=== PATIENT | female | born 1995 | race Caucasian/White ===

== ENCOUNTER 2024-11-27 07:20 | Inpatient (IN) | payer MEDICAID ==
[~2024-11-27] VITALS: Ht 160 cm; Wt 63.5 kg
[2024-11-27] VITALS (23 sets, daily range): BP systolic 110–132; BP diastolic 70–88; PULSE 68–85; RESP 16–18; TEMP 97.7–98.2; O2SAT 97–100
[2024-11-27] MEDS ORDERED: BUTORPHANOL TARTRATE 2 MG/1 ML VIAL IV PRN ×2 (08:00)
[2024-11-27 08:48] LABS: Hematocrit 39.5 % (36.0-46.0); Hemoglobin 12.7 g/dL (12.2-16.2); Mean Corpuscular Hemoglobin 27.6 pg (28.0-32.0); Mean Corpuscular Volume 85.9 fL (80.0-100.0); Nucleated Red Blood Cells % 0.1 %
--- NOTE | 2024-11-27 08:48 | DVHHP2 ---
OB CC & HPI Date Date of Admission: Nov 27, 2024 Patient Identification: : 1 Para: 0 EDC: Dec 15, 2024 EGA: 35 Chief Complaints: Reason for admission: active labor Admission Nurse Assessment Rev: No History of Present Complaints pt is admitted for active labor,she has no care and has used drugs. pt presented fully dilated .she also has high bp and 3 + edema in lower ext Past Medical History Cardiac: No pertinent Hx Pulmonary: No pertinent Hx Central Nervous System: No pertinent Hx GI: No pertinent Hx Hemotology/Oncology: No pertinent Hx Hepatobiliary: No pertinent Hx Psychiatric: No pertinent Hx Musculoskeletal: No pertinent Hx Rheumotologic: No pertinent Hx Infectious Disease: No peritnent Hx ENT: No pertinent Hx Renal/: No pertinent Hx Endocrine: No pertinent Hx Dermatology: No pertinent Hx Past Surgical History: No pertinent Hx OB History OB History Care: None Ultrasounds: No ultrasounds Obstetrical Complications: None Medical Complications: None Allergies: Coded Allergies: NO KNOWN ALLERGIES (Unverified , 11/27/24) Current Medications Current Medications Medications (Trade) Dose Ordered Sig/Adriane Route PRN Reason Start Time Stop Time Status Last Admin Lactated Ringer's 1,000 ml @ 125 mls/hr Q8H IV 11/27/24 08:00 UNV Witch Cookie (Tucks) 1 pad PRN PRN TOP PERINEAL AREA DISCOMFORT 11/27/24 08:00 UNV Sodium Lauryl Sulfate (Phisoderm) 240 ml PRN PRN TOP PERINEAL AREA DISCOMFORT 11/27/24 08:00 UNV Benzocaine (Dermoplast) 1 applic PRN PRN TOP PERINEAL AREA DISCOMFORT 11/27/24 08:00 UNV Butorphanol Tartrate (Stadol Injection) 1 mg Q4HPRN PRN IV MODERATE PAIN (4-6 PAIN SCALE) 11/27/24 08:00 UNV Butorphanol Tartrate (Stadol Injection) 2 mg Q4HPRN PRN IV SEVERE PAIN (7-10 PAIN SCALE) 11/27/24 08:00 UNV Lidocaine HCl (Xylocaine) 20 ml ONCE PRN IJ PERINEAL AREA DISCOMFORT 11/27/24 08:00 UNV Family & Social History Family/Social History Blood Type: Unknown Rubella: unknown RPR/VDRL: Unknown GBS Status: Unknown HBsAG: Unknown Review of Systems Constitutional: No symptom reported Ears, Nose, & Throat: No symptom reported Eyes: No symptom reported Pulmonary/Respiratory: No symptom reported Cardiovascular: No symptom reported Gastrointestinal: No symptom reported Genitourinary: No symptom reported Musculoskeletal: No symptom reported Skin: No symptom reported Psychiatric: No symptom reported Endocrine: No symptom reported Hemotologic/Lymphatic: No symptom reported OB Admission Exam Physical Exam HEENT: TMs Normal, Fontanelles Normal, Nasal Mucosa Normal, Eyes non-injected, Oropharynx Normal, PERRLA, Moist Membranes, EOMI Heart: Rhythm Normal Lungs: Clear Abdomen: Non tender Extremities: Normal Reflexes: Normal Cervical Dilatation: 10cm Effacement: 100% Station: +3 Membranes: Ruptured Amniotic Fluid: Clear Heart Rate: 130's Accelerations: Accelerations Present Decelerations: No Decelerations Short Term Variability: Present Masonry Inspector Variability: Average (6-25) Contractions on Admission: < 5 Minutes Apart Intensity: Moderate OB Plan Plan Admitting Diagnosis: iup at 37 wks with PRECIPITOUS LABO pih,drug use in preg ,no care Plan: Expectant Management Other Plan: informed consent obtanied Visit Coding OBGYN Date of Service: Nov 27, 2024 Billing Provider: JUAN C TRACY DO ELECTRICAL INSTALLATION INSPECTOR Common Visit Codes: [id number] OBS CARE (HIGH) ELECTRICAL INSTALLATION INSPECTOR Procedure Codes: 14096-LDW DELIVERY ONLY JUAN C TRACY DO Nov 27, 2024 08:47
--- NOTE | 2024-11-27 08:50 | LDN2 ---
Labor and Delivery Note Date 11/27/24 Age 29 1 Para 1 EDC 9-17 EGA 37wks Diagnosis active labor,pih,no care,drug use in preg,percipitous del Vaginal Delivery: VTX Vacuum Assisted: No Placenta: Spontaneous Sex: Female Apgars 7-7-8 Nuchal Cord Transected: No Amniotic Fluid: Clear Anesthesia xylocaine Episiotomy: Yes Extension: Yes (midline epis with 2nd dge perineal lac) Repaired with 2-0 chromic EBL 300ml Labs Laboratory Tests 11/27/24 08:11: Complications none Conditions stable Comments/Significant Med Sravanthi spec exam no cxal lac Visit Coding OBGYN Date of Service: Nov 27, 2024 Billing Provider: JUAN C TRACY DO PROP SAWYER Common Visit Codes: [id number] OBS CARE (HIGH) PROP SAWYER Procedure Codes: 36790-ZVO DELIVERY ONLY JUAN C TRACY DO Nov 27, 2024 08:50
[2024-11-27 08:59] LABS: Alanine Aminotransferase 32 U/L (7-40); Albumin 3.4 g/dL (3.2-4.8); Anion Gap 10 (5-15); BUN/Creatinine Ratio 19.0 (10.0-20.0); Blood Urea Nitrogen 11 mg/dL (9-23); Calcium 8.8 mg/dL (8.7-10.4); Potassium 4.3 mmol/L (3.5-5.1); Sodium 137 mmol/L (136-145); Total Protein 6.7 g/dL (5.7-8.2)
[2024-11-27 09:01] LABS: Carbon Dioxide 18 mmol/L (20-31); Chloride 109 mmol/L (98-107)
[2024-11-27 09:02] LABS: Alkaline Phosphatase 334 U/L (46-116); Bilirubin, Total 0.2 mg/dL (0.2-1.0); Glucose 147 mg/dL (74-106)
[2024-11-27 09:08] LABS: Uric Acid 3.3 mg/dL (3.1-7.8)
[2024-11-27 09:11] LABS: INR 0.86 (0.9-1.15); Partial Thromboplastin Time 21.9 SEC (24.5-34.5); Prothrombin Time 9.3 sec (9.3-11.8)
[2024-11-27 09:27] LABS: Urine Protein, UAD 1+ (Negative); Urine WBC Clumps PRESENT /hpf (None Seen)
[2024-11-27 09:34] LABS: Protein, Urine 84.6 mg/dL (1-14)
[2024-11-27 09:46] LABS: Amphetamine Screen, Urine Pos (NEGATIVE); Barbiturate Scree,Urine Neg (NEGATIVE); Benzodiazephine Screen, Urine Neg (NEGATIVE); Cannabinoid Screen, Urine Neg (NEGATIVE); Cocaine Screen, Urine Neg (NEGATIVE); Opiate Scree,Urine Pos (NEGATIVE); Phencyclidine Screen, Urine Neg (NEGATIVE)
[2024-11-27] MEDS ORDERED: LORazepam 2MG/ML-1ML VIAL IV ONE (10:30)
[2024-11-27] MEDS: WITCH HAZEL-GLYCERIN PAD TOP PRN (10:49)
[2024-11-27] MEDS: PHISODERM TOP SOLN 240ML BTL TOP PRN (10:49)
[2024-11-27] MEDS: DERMOPLAST 60ML BOTTLE TOP PRN (10:49)
[2024-11-27] MEDS: LACT. RINGERS/OXYTOCIN 20UNITS 500 ML IV ONE ×2 (10:51→10:52)
[2024-11-27] MEDS: MAGNESIUM SULFATE 100 ML IV ONE (11:08)
[2024-11-27] MEDS ORDERED: ACETAMINOPHEN 325 MG TAB PO PRN (11:45)
[2024-11-27] MEDS ORDERED: ONDANSETRON ODT 4 MG TAB PO PRN (11:45)
[2024-11-27] MEDS: LACTATED RINGER'S 1,000 ML IV SCH (11:49)
[2024-11-27] MEDS: MAGNESIUM SULFATE 40MG/ML 1,000 ML IV SCH (11:59)
[2024-11-27] MEDS: LIDOCAINE 2%HCL (LOCAL ANESTH.) INJ 20ML MDV IJ PRN (13:03)
[2024-11-27] MEDS: DOCUSATE SOD 100 MG CAP PO SCH (22:00)
[2024-11-28] VITALS (8 sets, daily range): BP systolic 101–136; BP diastolic 56–83; PULSE 73–94; RESP 16–18; TEMP 98.2–98.4; O2SAT 97–99
--- NOTE | 2024-11-28 04:25 | DVHPN2 ---
Chief Complaints Patient reports: No new complaints (Denies any sx. No h/a, epigastric pain or visual change. Coping well. Denies blues) Nursing reports: No new complaints Objective Vitals Vital Signs Date Time Temp Pulse Resp B/P (MAP) Pulse Ox O2 Delivery O2 Flow Rate FiO2 11/28/24 03:01 98.4 94 18 132/79 (96) 98 98.4 11/28/24 01:00 Room Air Medications Current Medications Medications (Trade) Dose Ordered Sig/Adriane Route PRN Reason Start Time Stop Time Status Last Admin Acetaminophen (Tylenol Tablet) 650 mg Q4HP PRN PO MILD PAIN (1-3 PAIN SCALE) 11/27/24 11:45 Benzocaine (Dermoplast) 1 applic PRN PRN TOP PERINEAL AREA DISCOMFORT 11/27/24 08:00 11/27/24 10:49 Docusate Sodium (Colace Capsule) 200 mg HS PO 11/27/24 22:00 Ibuprofen (Motrin Tablet) 600 mg Q6HP PRN PO MODERATE PAIN (4-6 PAIN SCALE) 11/27/24 11:45 Lactated Ringer's 1,000 ml @ 125 mls/hr Q8H IV 11/27/24 08:00 11/27/24 11:49 Lidocaine HCl (Xylocaine) 20 ml ONCE PRN IJ PERINEAL AREA DISCOMFORT 11/27/24 08:00 11/27/24 13:03 Magnesium Sulfate 1,000 ml @ 50 mls/hr Q20H IV 11/27/24 10:30 11/27/24 11:59 Ondansetron HCl (Zofran Po) 4 mg Q4HPRN PRN PO NAUSEA / VOMITING 11/27/24 11:45 Sodium Lauryl Sulfate (Phisoderm) 240 ml PRN PRN TOP PERINEAL AREA DISCOMFORT 11/27/24 08:00 11/27/24 10:49 Witch Cookie (Tucks) 1 pad PRN PRN TOP PERINEAL AREA DISCOMFORT 11/27/24 08:00 11/27/24 10:49 General: Normal Lungs: Normal, Normal breath sounds, Lungs clear Cardiovascular: Normal, Regular rate and rhythm Heart Murmur: no murmur Abdominal: Normal (Fundus firm, 2fb below umbilicus, non tender) Musculoskeletal: Normal Extremities: Normal (Elizabeth's neg), No edema Skin: Normal Others Breasts soft, nipples intact Perineum without edema, lochia minimal, no odor Studies Laboratory Tests 11/27/24 08:11 Test 11/27/24 08:11 Range/Units Serum Glucose 147 H 74-106 mg/dL Ass/Plan Assessment 1st PP day H/o hypertension - currently mild range BPs Plan D/c magnesium sulfate as ordered Continue close BP monitoring Continue PP management Evaluate for d/c tomorrow Visit Coding OBGYN Date of Service: Nov 28, 2024 Billing Provider: IONA GUZMAN CNM HEDIS ANALYST Common Visit Codes: [id number] INP/OBS CARE(MOD) HEDIS ANALYST Procedure Codes: 73296-DJA DEL INCLUDING IONA GUZMAN CNM Nov 28, 2024 04:25
[2024-11-28] MEDS: IBUPROFEN 600 MG TAB PO PRN (09:45)
[2024-11-28] MEDS ORDERED: LABETALOL HCL 200 MG TAB PO SCH (10:00)
[2024-11-28] MEDS: LABETALOL HCL 200 MG TAB PO SCH (22:00)
[2024-11-29 03:20] VITALS: BP 122/67; PULSE 96; RESP 16; TEMP 98.1; O2SAT 99
--- NOTE | 2024-11-29 04:37 | DVHPN2 ---
Progress Note Date Seen: Nov 29, 2024 Subjective - Subjective bleeding is scant, ambulating to the bathroom, regular diet denies lightheaded/dizziness, pain well controlled with oral medications, no concerns with urinating, passing flatus, no BM yet, well. Reports of perineal pain at the episiotomy site. Objective Vital Signs Date Time Temp Pulse Resp B/P (MAP) Pulse Ox O2 Delivery O2 Flow Rate FiO2 11/29/24 03:20 98.1 96 16 122/67 (85) 99 98.1 11/28/24 18:30 Room Air Chest: heart sounds normal and lung sounds clear bilaterally Abd: soft, non-tender, fundus at -2 below umbilicus/firm/midline, active bowel sounds, no rebound or guarding Perineum: sutures intact, edges well approximated, no erythema/edema noted Ext: Non-tender, +1 pitting edema lower extremities Lochia: minimal See lab results Assessment 29yo now PPD#2 s/p with episiotomy PPD #2 + UDS Methamphetamines / Opiates + Hep C Social Consult done Elevated Blood pressures during labor / Magnesium therapy during labor for neuro protection. Taking labetalol 100 mg BID for elevated blood pressure Plan D/C home today will be continued observation as ordered by the job training supervisor Rx sent to pharmacy precautions and preeclampsia warning signs reviewed F/U with [facility] OB office in 1 weeks Activity: as tolerated, no heavy lifting and nothing in the vagina for 6 weeks will continued admission for observation vital signs Vital Sign Date Time Temp Pulse Resp B/P (MAP) Pulse Ox O2 Delivery O2 Flow Rate FiO2 11/29/24 03:20 98.1 96 16 122/67 (85) 99 98.1 11/28/24 18:30 Room Air Total Intake and Output 11/28/24 11/28/24 11/29/24 15:00 23:00 07:00 Output Total 500 ml 400 ml Balance -500 ml -400 ml medications Current Medications Medications Dose Ordered Sig/Adriane Route Start Time Stop Time Status Last Admin Dose Admin Lactated Ringer's 1,000 ml @ 125 mls/hr Q8H IV 11/27/24 08:00 11/27/24 11:49 125 MLS/HR Vicky Gary 1 pad PRN PRN TOP 11/27/24 08:00 11/27/24 10:49 1 PAD Sodium Lauryl Sulfate 240 ml PRN PRN TOP 11/27/24 08:00 11/27/24 10:49 240 ML Benzocaine 1 applic PRN PRN TOP 11/27/24 08:00 11/27/24 10:49 1 APPLIC Lidocaine HCl 20 ml ONCE PRN IJ 11/27/24 08:00 11/27/24 13:03 20 ML Magnesium Sulfate 1,000 ml @ 50 mls/hr Q20H IV 11/27/24 10:30 11/27/24 11:59 50 MLS/HR Ibuprofen 600 mg Q6HP PRN PO 11/27/24 11:45 11/28/24 09:45 600 MG Acetaminophen 650 mg Q4HP PRN PO 11/27/24 11:45 Ondansetron HCl 4 mg Q4HPRN PRN PO 11/27/24 11:45 Docusate Sodium 200 mg HS PO 11/27/24 22:00 11/28/24 21:55 200 MG Labetalol HCl 100 mg Q12HR PO 11/28/24 10:00 11/28/24 22:07 100 MG Labetalol HCl 100 mg Q12HR PO 11/28/24 10:00 Cancel laboratory and microbiology Laboratory Tests 11/27/24 08:11 Test 11/27/24 08:11 Range/Units Serum Glucose 147 H 74-106 mg/dL Problems(with codes): (1) Vaginal delivery (2) Episiotomy pain (3) Positive urine drug screen (4) Elevated blood pressure affecting in third trimester, antepartum (5) Limited care (6) Substance abuse complicating in third trimester, antepartum (7) Hepatitis C Assessment/Plan _ Plan discussed with: Patient Visit Coding OBGYN Date of Service: Nov 29, 2024 Billing Provider: NATHANIEL LIN CNM HAND CLERICAL VERIFIER Common Visit Codes: [id number] OBS CARE (MOD) [facility] [place] [facility]
[2024-11-29 07:30] VITALS: BP 119/84; PULSE 91; RESP 18; TEMP 98.2; O2SAT 98
--- NOTE | 2024-11-29 08:29 | DVHPN2 ---
Chief Complaints Patient reports: No new complaints (Denies any sx. No h/a, epigastric pain or visual change. Coping well. Denies blues) Nursing reports: No new complaints Objective Vitals Vital Signs Date Time Temp Pulse Resp B/P (MAP) Pulse Ox O2 Delivery O2 Flow Rate FiO2 11/29/24 07:30 98.2 91 18 119/84 (96) 98 98.2 11/28/24 18:30 Room Air Medications Current Medications Medications (Trade) Dose Ordered Sig/Adriane Route PRN Reason Start Time Stop Time Status Last Admin Labetalol HCl (Normodyne Tablet) 100 mg Q12HR PO 11/28/24 10:00 11/28/24 22:00 Labetalol HCl (Normodyne Tablet) 100 mg Q12HR PO 11/28/24 10:00 Cancel General: Normal Lungs: Normal, Normal breath sounds, Lungs clear Cardiovascular: Normal, Regular rate and rhythm Heart Murmur: no murmur Abdominal: Normal (Fundus firm, 2fb below umbilicus, non tender), Soft Musculoskeletal: Normal Extremities: Normal (Elizabeth's neg), No edema Skin: Normal Studies Laboratory Tests 11/27/24 08:11 Test 11/27/24 08:11 Range/Units Serum Glucose 147 H 74-106 mg/dL Ass/Plan Assessment S/P Plan DC HOME FU IN 1 WK Visit Coding OBGYN Date of Service: Nov 29, 2024 Billing Provider: JUAN C TRACY DO GROUP FITNESS MANAGER Common Visit Codes: 75052-SNODYTT OBS CARE (HIGH), 50815-[id number] INP/OBS CARE(HIGH), 37451-ABU/OBS DISCH DAY >30MIN GROUP FITNESS MANAGER Procedure Codes: 35001-LZV DELIVERY ONLY JUAN C TRACY DO Nov 29, 2024 08:29
[2024-11-29] MEDS ORDERED: LABE100T7 PO (08:34)
--- NOTE | 2024-11-29 08:34 | DVHDS2 ---
Obstetrics Discharge Summary Obstetrics Discharge Summary Date of Admission: Nov 27, 2024 Date of Discharge: Nov 29, 2024 Reason For Admission: Onset of Labor Procedures: NST Intrapartum Procedures: Spontaneous vaginal deliv, Episiotomy Procedures: None, Transfusion Operative Complicat: Laceration (PERINEAL LAC MIDLINE 2ND DEG) Discharge Diagnosis: Delivery (DRUG USE IN PREG,PERCIPITOUS PREG,PIH,NO CARE) Discharge Information: Activity (Other), Diet (Routine), Medications (Name:), Instructions (Routine), Discharge to (Home), Discarge date (11-29) Visit Coding OBGYN Date of Service: Nov 29, 2024 Billing Provider: JUAN C TRACY DO HEARING STENOGRAPHER Common Visit Codes: [id number] INP/OBS CARE(HIGH), 78230-MXC/OBS DISCH DAY >30MIN HEARING STENOGRAPHER Procedure Codes: 60754-IKT DELIVERY ONLY JUAN C TRACY DO Nov 29, 2024 08:34
[2024-11-29] MEDS ORDERED: hydrALAZINE HCL 20 MG/ML VL IV ONE (09:29)
[2024-11-29 09:30] VITALS: TEMP 98.6
[2024-11-30 12:07] LABS: Chlamydia Trachomatis, NAA Negative (Negative); Neisseria gonorrhoeae, NAA Negative (Negative)
== END 2024-11-29 09:30 | disposition home or self-care (01) | DRG 560 ==
LOC: OBSVTOIN 07:20 → LDRP 07:20
PROVIDERS: ADMIT Obstetrics & Gynecology; ATTEND Obstetrics & Gynecology
PROC: 10E0XZZ Delivery of Products of Conception, External Approach (ICD-10-PCS; principal; 2024-11-27)
PROC: 0KQM0ZZ Repair Perineum Muscle, Open Approach (ICD-10-PCS; 2024-11-27)
PROC: 0W8NXZZ Division of Female Perineum, External Approach (ICD-10-PCS; 2024-11-27)
DX: O13.4 Gestational [pregnancy-induced] hypertension without significant proteinuria, complicating childbirth (principal); Z37.0 Single live birth; O60.14X0 Preterm labor third trimester with preterm delivery third trimester, not applicable or unspecified; O62.3 Precipitate labor; O99.324 Drug use complicating childbirth; Z3A.37 37 weeks gestation of pregnancy; O70.1 Second degree perineal laceration during delivery
CPT/HCPCS: 36415; 59409; 59414; 80053; 80307; 81001; 81002; 82570; 83735; 84156; 84550; 85025; 85610; 85730; 86703; 86705; 86762; 86780; 86803; 86850; 86900; 86901; 87340; 94760; 94762; 96360; 96361; 96365; 96366; G0378